=== PATIENT | female | born 1980 | race Caucasian/White ===

== ENCOUNTER 2017-03-09 18:13 | Emergency (ER) | payer MEDICAID ==
[~2017-03-09] VITALS: Ht 162.6 cm; Wt 97.0 kg
[2017-03-09] MEDS ORDERED: IBUPROFEN 200 MG TABLET ONE (19:16)
[2017-03-09] MEDS ORDERED: IBUPROFEN 200 MG TABLET PO ONE (19:30)
[2017-03-09] MEDS ORDERED: DIAZEPAM 5 MG TABLET PO ONE (19:30)
[2017-03-09] MEDS ORDERED: DIAZEPAM 5 MG TABLET ONE (19:31)
[2017-03-09] MEDS ORDERED: OXYcodone/APAP 5/325MG TABLET ONE (20:13)
[2017-03-09 20:24] VITALS: BP 135/89
[2017-03-09] MEDS ORDERED: OXYcodone/APAP 5/325MG TABLET PO ONE (20:30)
== END 2017-03-09 20:27 | disposition home or self-care (01) ==
LOC: ED 20:21
DX: M62.830 Muscle spasm of back (principal); M54.6 Pain in thoracic spine
CPT/HCPCS: 72072; 72110; 81001; 87086

== ENCOUNTER 2021-05-16 20:32 | Emergency (ER) | payer MEDICAID ==
[~2021-05-16] VITALS: Ht 162.6 cm; Wt 126.2 kg
[2021-05-16 20:34] VITALS: BP 177/92
--- NOTE | 2021-05-16 23:51 | NUR ---
CENTRAL SUPPLY NURSE: NIL X 1 WHEN CALLED FOR ROOM
--- NOTE | 2021-05-17 00:06 | NUR ---
MILLED RICE BROKER: NIL X 2 WHEN CALLED FOR ROOM.
--- NOTE | 2021-05-17 00:44 | NUR ---
TUNNEL INSPECTOR: NIL X 3 WHEN CALLED FOR ROOM.
== END 2021-05-17 00:48 | disposition left against medical advice (07) ==
LOC: ED 05-17 00:46
DX: K08.89 Other specified disorders of teeth and supporting structures (principal); Z53.21 Procedure and treatment not carried out due to patient leaving prior to being seen by health care provider